=== PATIENT | male | born 1990 | race Caucasian/White ===

== ENCOUNTER 2023-04-14 14:02 | Emergency (ER) | payer OTHER ==
[~2023-04-14] VITALS: Ht 182.9 cm; Wt 70.0 kg
[2023-04-14] MEDS: TETANUS-DIPTH-ACEL PERTUSSIS 0.5ML SYR Tdap IM ONE (15:34)
[2023-04-14 16:55] VITALS: BP 110/76; PULSE 67; RESP 18; TEMP 98; O2SAT 97
== END 2023-04-14 17:02 ==
LOC: ER 14:02 → EDBD 14:02 → ER 16:44
DX: S01.412A Laceration without foreign body of left cheek and temporomandibular area, initial encounter (principal); S20.372A Other superficial bite of left front wall of thorax, initial encounter; Y04.8XXA Assault by other bodily force, initial encounter; Y93.89 Activity, other specified; Y92.89 Other specified places as the place of occurrence of the external cause; Y99.8 Other external cause status
CPT/HCPCS: 12011; 90471; 90715